=== PATIENT | male | born 1980 | race Caucasian/White ===

== ENCOUNTER → 2016-05-11 | Outpatient (REF) | payer OTHER ==
[2016-05-11 10:25] LABS: IMMMOTILE SPERM CENTRIFUGED ABSENT (ABSENT); IMMOTILE SPERM ABSENT (ABSENT); MOTILE SPERM ABSENT (ABSENT); MOTILE SPERM CENTRIFUGED ABSENT (ABSENT)
== END ==
LOC: M SMT 09:30
PROVIDERS: ATTEND Urology
DX: Z30.2 Encounter for sterilization (principal)